=== PATIENT | female | born 1950 | race Caucasian/White ===

== ENCOUNTER 2020-08-13 02:56 | Emergency (ER) | payer OTHER ==
[~2020-08-13] VITALS: Ht 157.5 cm; Wt 72.6 kg
[~2020-08-13 02:56] MED LIST: ADULT LOW DOSE81 MG PO; CELEXA 20 MG TA20 M1; FENOFIBRATE200 MG PO; HYDROCODONE-APA1 TA1 PO; LAMICTAL XR100 MG PO; LUNESTA3 MG PO; MECLIZINE HCL25 M1 PO; NORCO 5-325 TA1 EAC1 PO; NORCO 5-325 TA1 EACH PO; NORFLEX100 MG; PERCOCET 10-321 EACH PO; PERCOCET 5-3251 EACH PO; PERCOCET 7.5-51 EACH PO; PREDNISONE 20 M20 MG PO; PRILOSEC40 MG; SEROQUEL200 MG PO; SIMVASTATIN40 MG PO; STELAZINE; TRAZODONE 100100 MG PO; VALIUM5 MG PO; VISTARIL 25 MG25 M1 PO; VITAMIN B-1250 MCG PO; VITAMIN C W/R1000 MG PO; VITAMIN D 5050000 I1 PO; XANAX XR1 MG PO; XANAX1 MG; ZOFRAN ODT4 MG PO; [UNRECOGNIZED DRUG - OTHER]
[2020-08-13 04:50] LABS: ABSOLUTE BASOPHILS 0.1 thou/uL (0.0-0.2); ABSOLUTE EOSINOPHILS 0.1 thou/uL (0.0-0.7); ABSOLUTE LYMPHOCYTES 1.5 thou/uL (0.8-5.3); ABSOLUTE MONOCYTES 0.4 thou/uL (0.0-1.2); ABSOLUTE NEUTROPHILS 6.1 thou/uL (1.6-8.1); BASOPHILS 1.1 %; EOSINOPHILS 1.6 %; HEMATOCRIT 31.3 % (37.0-47.0); HEMOGLOBIN 10.2 gm/dL (12.0-15.0); LYMPHOCYTES 18.5 %; MCH 26.2 pg (26.0-34.0); MCHC 32.6 g/dL (28.0-37.0); MCV 80.2 fL (80.0-100.0); MONOCYTES 4.8 %; MPV 7.6 fl. (7.2-11.1); NUCLEATED RBCS 0 /100WBC; PLATELET COUNT* 242 thou/uL (150-400); WBC 8.2 thou/uL (4.0-11.0)
[2020-08-13 04:58] LABS: CALCIUM 8.8 mg/dL (8.5-10.1)
[2020-08-13 05:02] LABS: ALBUMIN 3.8 g/dL (3.4-5.0); TOTAL BILIRUBIN 0.2 mg/dL (<0.1-1.0); TOTAL PROTEIN 7.7 g/dL (6.4-8.2)
[2020-08-13 07:58] LABS: URINE BILIRUBIN NEGATIVE (Negative); URINE BLOOD NEGATIVE (Negative); URINE CLARITY CLEAR; URINE COLOR YELLOW; URINE GLUCOSE-RANDOM NEGATIVE (Negative); URINE KETONES NEGATIVE (Negative); URINE LEUKOCYTES-REFLEX NEGATIVE (Negative); URINE NITRITE-REFLEX NEGATIVE (Negative); URINE PROTEIN NEGATIVE (Negative); URINE SPECIFIC GRAVITY <= 1.005 (1.005-1.030); URINE UROBILINOGEN 0.2 E.U./dl (0.2-1.0)
[2020-08-13] MEDS ORDERED: ENDOCET 5-3251 EACH PO (09:37)
[2020-08-13 09:55] VITALS: BP 117/66
== END 2020-08-13 10:42 | disposition home or self-care (01) ==
LOC: M.ERS 02:56
PROVIDERS: Emergency Medicine
DX: S20.211A Contusion of right front wall of thorax, initial encounter (principal); S80.212A Abrasion, left knee, initial encounter; S80.211A Abrasion, right knee, initial encounter; F17.210 Nicotine dependence, cigarettes, uncomplicated; Z88.1 Allergy status to other antibiotic agents; Z88.0 Allergy status to penicillin; Z88.2 Allergy status to sulfonamides; Z98.51 Tubal ligation status; Z98.890 Other specified postprocedural states; Z90.710 Acquired absence of both cervix and uterus; W11.XXXA Fall on and from ladder, initial encounter; Y93.89 Activity, other specified; Y92.89 Other specified places as the place of occurrence of the external cause; Y99.9 Unspecified external cause status

== ENCOUNTER 2020-08-17 22:31 | Emergency (ER) | payer OTHER ==
[~2020-08-17] VITALS: Ht 157.5 cm; Wt 71.7 kg
[~2020-08-17 22:31] MED LIST changes: +ENDOCET 5-3251 EACH PO
[2020-08-17] MEDS ORDERED: NEURONTIN 300M300 M2 PO (22:45)
[2020-08-17] MEDS ORDERED: TOPROL XL25 MG PO (22:46)
[2020-08-17] MEDS ORDERED: SYMBICORT160 MCG/4. INH (22:46)
[2020-08-17] MEDS ORDERED: CELEXA 20 MG TA20 MG PO (22:46)
[2020-08-17] MEDS ORDERED: FLONASE 0.05%50 MCG NARES (22:47)
[2020-08-17] MEDS ORDERED: CLARITIN10 M3 PO (22:47)
[2020-08-17] MEDS ORDERED: MUCINEX D ER 11 EACH PO (22:48)
[2020-08-18] MEDS ORDERED: ACETAMINOPHEN-1 EAC2 PO (00:18)
[2020-08-18 01:10] VITALS: BP 119/66
== END 2020-08-18 01:10 | disposition home or self-care (01) ==
LOC: M.ERS 22:31
DX: S20.211D Contusion of right front wall of thorax, subsequent encounter (principal); F17.210 Nicotine dependence, cigarettes, uncomplicated; Z88.1 Allergy status to other antibiotic agents; Z88.0 Allergy status to penicillin; Z88.2 Allergy status to sulfonamides; Z88.6 Allergy status to analgesic agent; Z79.899 Other long term (current) drug therapy; Z90.710 Acquired absence of both cervix and uterus; Z90.49 Acquired absence of other specified parts of digestive tract; Z90.89 Acquired absence of other organs; Z98.51 Tubal ligation status; W01.0XXD Fall on same level from slipping, tripping and stumbling without subsequent striking against object, subsequent encounter